=== PATIENT | male | born 1955 | race Caucasian/White ===

== ENCOUNTER 2024-03-06 05:53 | Observation (INO) ==
--- NOTE | 2024-02-22 08:25 | Anesthesiology Consultation ---
Date of Service February 22, 2024 Assessment & Plan (1) Encounter for pre-operative examination: Infectious disease screening: Per assessment on 02/22/24- No known recent infectious disease contacts or current infectious disease symptoms. Chart Review Chart Review: Acceptable Risk for Surgery and Patient NOT seen in Pre Admission Testing History Surgery Operation Date: 03/06/24 07:30 Proposed Procedures p TURP (Transurethral Resection Prostate) - Abdirahman Simon MD Height/Weight Height: 5 ft 11 in Weight: 89.811 kg Allergies Allergy/AdvReac Type Severity Reaction Status Date / Time Penicillins Allergy Mild Hives Verified 02/22/24 07:31 Medications Home Medications Medication Instructions Recorded Confirmed Last Taken amlodipine 10 mg tablet 10 mg PO QAM 08/30/23 02/22/24 Unknown atorvastatin 20 mg tablet 20 mg PO QPM 08/30/23 02/22/24 Unknown Past Medical History Medical History Benign prostatic hyperplasia (BPH) with urinary urgency History of pericarditis (1987) Viral, treated during admission at that time No current/subsequent issues HLD (hyperlipidemia) Hypertension Past Surgical History Surgical History Hx of appendectomy Hx of colonoscopy Social History Smoking Status: Never smoker Do You Dip or Chew Tobacco: No Hx Alcohol Use: No Hx Substance Use: No substance use type: does not use Lab Results Anesthesia Preop Results Results Anesthesia Widget: WBC 5.88 K/ul (4.8-10.8) 02/17/24 Hgb 16.9 g/dl (14.0-18.0) 02/17/24 Hct 49.7 % (42.0-52.0) 02/17/24 Plt 217 K/uL (130-400) 02/17/24 Na 140 mmol/L (136-145) 02/17/24 K 3.8 mmol/L (3.5-5.1) 02/17/24 Cl 106 mmol/L (98-107) 02/17/24 CO2 28 mmol/L (21-32) 02/17/24 BUN 13 mg/dl (6-23) 02/17/24 Creat 0.86 mg/dl (0.6-1.4) 02/17/24 Glucose Level 113 mg/dl (70-99(Fasting)) H 02/17/24 Testing Laboratory Results UA (01/31/24): negative Urine culture (02/17/24): no growth Electrocardiogram Date: 02/17/24 NSR at 67bpm. Septal infarct, age undetermined. Septal infarct dating back to comparison EKG 10/08/258691. Stress echo done 10/22/2013 with stress echo negative for inducible ischemia. Chest X-Ray Date: 02/17/24 FINDINGS: No lines and tubes are seen. The cardiomediastinal silhouette is normal. The lungs are clear. No evidence of pleural effusion or pneumothorax. IMPRESSION: No acute chest disease.
[2024-03-06] MEDS: LR 15ML/HR IV SCH (06:26)
[2024-03-06] MEDS ORDERED: HYDROmorphone INJ 2 MG/ML SYR/VIAL IV PRN (06:58)
[2024-03-06] MEDS ORDERED: PROMETHAZINE HCL 6.25 MG in SODIUM CHLORIDE 0.9% 50 ML IV PRN (06:58)
[2024-03-06] MEDS ORDERED: ePHEDrine sulfate 50 MG/ML AMP IV PRN (06:58)
[2024-03-06] MEDS ORDERED: ATROPINE SULFATE 0.1 MG/ML 10ML SYR IV PRN (06:58)
[2024-03-06] MEDS ORDERED: ONDANSETRON INJ 2 MG/ML 2 ML VIAL IV PRN (06:58)
[2024-03-06] MEDS ORDERED: MIDAZOLAM HCL 1 MG/ML 2ML VIAL ONE (07:07)
[2024-03-06] MEDS ORDERED: fentaNYL citrate PF 100 MCG/2 ML VIAL ONE (07:07)
[2024-03-06] MEDS ORDERED: PROPOFOL IV EMULSION 10 MG/ML 20 ML VIAL IV ONE (07:08)
[2024-03-06] MEDS ORDERED: DEXAMETHASONE SOD INJ 4 MG/ML VIAL ONE (07:08)
[2024-03-06] MEDS ORDERED: ONDANSETRON INJ 2 MG/ML 2 ML VIAL ONE (07:08)
[2024-03-06] MEDS ORDERED: LIDOCAINE 2% 2 ML VIAL/AMP(20MG/ML) INFIL ONE (07:08)
--- NOTE | 2024-03-06 07:22 | History & Physical Report ---
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 here now for TURP Allergies Allergy/AdvReac Type Severity Reaction Status Date / Time Penicillins Allergy Mild Hives Verified 03/06/24 06:11 Home Medications Medication Instructions Recorded Confirmed Type amlodipine 10 mg tablet 10 mg PO QAM 08/30/23 03/06/24 History atorvastatin 20 mg tablet 20 mg PO QPM 08/30/23 03/06/24 History Past Med/Surg History Problem List Encounter for pre-operative examination Dysuria Benign prostatic hyperplasia (BPH) with urinary urgency Medical History Benign prostatic hyperplasia (BPH) with urinary urgency History of pericarditis (1987) Viral, treated during admission at that time No current/subsequent issues HLD (hyperlipidemia) Hypertension Surgical History Hx of appendectomy Hx of colonoscopy Social History Smoking Status: Never smoker Second Hand Exposure: No; Do You Dip or Chew Tobacco: No; Tobacco Cessation Education Requested by Patient: No Hx Alcohol Use: No Hx Substance Use: No Preferred Language: Ukrainian Communication Ability: Effective Director Of Retention Required: No Beliefs That Will Affect Care: None Current Living Situation: Spouse Other Information That Helps Us Care for You: No Feels Safe at Home: Yes Safety Concerns: Feels Safe At This Time Assistive Devices: Hearing Aid - Bilateral Physical Exam Constitutional: well developed and well nourished Neck: neck nontender Respiratory: normal respiratory effort; no respiratory distress and does not use accessory muscles Cardiovascular: Rate/Rhythm: regular rate Vessels: radial pulses present Extremities: no edema Gastrointestinal (Abdomen): Inspection/Auscultation: abdomen normal to inspection Percussion/Palpation: abdomen soft; abdomen nontender and no guarding Musculoskeletal: Head/Neck/Chest: normocephalic and head atraumatic Extremities: extremities normal to inspection Skin: no rashes and no lesions Trauma: no evidence of skin trauma Neurologic: awake; not obtunded Speech / Cognition: normal speech Motor /Sensory: no tremor Psychiatric: Orientation: alert and oriented x 3 Genitourinary: no CVA tenderness Lymphatic: no lymphadenopathy Results & Data Vital Signs (Past 12 Hours) Vital Signs Temp Pulse Resp BP Pulse Ox O2 Del Method 03/06/24 06:16 37 C 70 20 166/96 H 99 Room Air
[2024-03-06] MEDS: CIPROFLOXACIN / D5W 400 MG/200 ML BAG IV SCH ×2 (07:31→18:14)
--- NOTE | 2024-03-06 08:24 | Operative Report ---
PG Post Operative Report Pre & Post Diagnosis Operation Date: 03/06/24 08:10 Pre-Op Diagnosis: Benign Prostatic Hyperplasia with Lower Urinary Tract symptoms Post-Op Diagnosis: Benign Prostatic Hyperplasia with Lower Urinary Tract symptoms I identified the patient and participated in the time-out.: Yes Procedure Operation Date: 03/06/24 08:10 Actual Procedures p TURP (Transurethral Resection Prostate)(Not Applicable) - Abdirahman Simon MD Surgeon Abdirahman Simon MD [employer]ified [employer] Associate none Estimated Blood Loss 0 Findings Consistent with Post-Op Diagnosis Specimens Prostate chips Description of Procedure The patient was identified in the preoperative holding area, appropriate informed consents were reviewed and completed and the patient was transferred to the operative suite. Upon arrival, appropriate antibiotics and anesthesia were administered and the patient was placed in dorsal lithotomy position and prepped and draped in sterile fashion. To begin the case I dilated his meatus to accommodate a 27 [place] resectoscope. I used cystoscopy sounds to perform the dilation and it was atraumatic. I then advanced the scope without difficulty. 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 The prostate itself was enlarged but he has a pedunculated intravesical median lobe. The remainder of his bladder was quite healthy and his ureteral orifices were in orthotopic position. I used a loop electrode and I first resected the median lobe. This drastically improved the appearance of the prostate. He does have some residual lateral lobe obstruction but it is not excessive. I contoured the lateral lobes and a bit of redundant anterior tissue to completely open the prostatic urethra. The specimen was extracted and hemostasis obtained. A 22 [place] Antoine catheter was inserted without difficulty and the case was concluded. He tolerated anesthesia very well and was reversed and taken to the recovery room in stable condition. He will be kept overnight and have a voiding trial tomorrow morning and then follow-up in our office in approximately 3 months to assess his symptoms. I attest to the content of the Intraoperative Record and any orders documented therein. Any exceptions are noted below.
[2024-03-06] MEDS: fentaNYL citrate PF 100 MCG/2 ML VIAL IV PRN (08:29)
--- NOTE | 2024-03-06 08:49 | Anesthesiology Progress Note ---
Date of Service March 06, 2024 Anesthesia Post Procedure Vital Signs Vital Signs: Temp Pulse Pulse Resp BP Pulse Ox O2 Del Method 03/06/24 08:40 63 16 140/78 95 Oxymask 03/06/24 08:30 63 17 131/79 97 Oxymask 03/06/24 08:22 36.4 C L 81 17 143/78 H 97 Oxymask 03/06/24 06:16 37 C 70 20 166/96 H 99 Room Air O2 Flow Rate 03/06/24 08:40 5 03/06/24 08:30 5 03/06/24 08:22 5 03/06/24 06:16 Transfer of Care Handoff Completed per policy Notes Mental Status: alert / awake / arousable and participated in evaluation Patient Amnestic to Procedure: Yes Nausea / Vomiting: adequately controlled Pain: adequately controlled Airway Patency, RR, SpO2: stable & adequate BP & HR: stable & adequate Hydration State: stable & adequate Anesthetic Complications: no major complications apparent
[2024-03-06] MEDS: SODIUM CHLORIDE 0.9% 500 ML IV SCH (09:40)
[2024-03-06] MEDS: ACETAMINOPHEN 325 MG TAB PO PRN (09:48)
[2024-03-06] MEDS: amLODIPine BESYLATE 5 MG TAB PO SCH (09:49)
[2024-03-06] MEDS: PHENAZOPYRIDINE HCL 200 MG TAB PO PRN (11:14)
[2024-03-06] MEDS: ATORVASTATIN 20 MG TAB PO SCH (20:19)
--- NOTE | 2024-03-07 09:27 | Urology Progress Note ---
Date of Service March 07, 2024 Assessment & Plan (1) Benign prostatic hyperplasia (BPH) with urinary urgency: Plan Postop day #1 status post TURP Plan for voiding trial this morning and discharge home later today Admission and Anticipated Discharge Date Admission Date: March 06, 2024 Subjective No major issues overnight Catheters been draining well No pain or discomfort Clear urine Physical Exam Physical Exam: Clear urine in the tubing Results & Data Vital Signs (Past 12 Hours) Vital Signs Temp Pulse Pulse Resp BP Pulse Ox O2 Del Method 03/07/24 08:09 36.6 C 78 17 179/83 H 95 Room Air 03/07/24 03:04 36.5 C 64 18 136/67 96 Room Air 03/06/24 23:33 36.5 C 63 18 150/77 H 96 Room Air PG Care Time/CCT Total # of Minutes Spent Total Time Spent with Patient: Total time spent is greater than 50% in coordination of care (as documented) at patient's floor/unit and/or counseling patient: Coding Level of Care Code None Diagnoses Benign prostatic hyperplasia (BPH) with urinary urgency N40.1; R39.15
[2024-03-07 14:14] VITALS: RESP 18
[2024-03-07 15:11] VITALS: BP 173/96; PULSE 74; TEMP 98.2; O2SAT 96
--- NOTE | 2024-03-07 15:47 | Discharge Summary ---
Date of Service March 07, 2024 Admission HPI Per Admitting Provider 68 year old male with long standing voiding dysfunction with an enlarged prostate here now for TURP Admission Exam Per Admitting Provider Constitutional: well developed and well nourished Neck: neck nontender Respiratory: normal respiratory effort; no respiratory distress and does not use accessory muscles Cardiovascular: Rate/Rhythm: regular rate Vessels: radial pulses present Extremities: no edema Gastrointestinal (Abdomen): Inspection/Auscultation: abdomen normal to inspection Percussion/Palpation: abdomen soft; abdomen nontender and no guarding Musculoskeletal: Head/Neck/Chest: normocephalic and head atraumatic Extremities: extremities normal to inspection Skin: no rashes and no lesions Trauma: no evidence of skin trauma Neurologic: awake; not obtunded Speech / Cognition: normal speech Motor/Sensory: no tremor Psychiatric: Orientation: alert and oriented x 3 Genitourinary: no CVA tenderness Lymphatic: no lymphadenopathy Principal Diagnosis BPH w/LUTS Discharge Exam Constitutional no acute distress Respiratory no respiratory distress and no labored breathing Musculoskeletal Head/Neck/Chest: normocephalic Skin no rashes, warm and dry Neurologic moves all extremities and awake Psychiatric A+Ox3, euthymic affect Discharge Data Allergies Allergy/AdvReac Type Severity Reaction Status Date / Time Penicillins Allergy Mild Hives Verified 03/06/24 06:11 Procedures Performed Operation Date: 03/06/24 08:10 Actual Procedures p TURP (Transurethral Resection Prostate)(Not Applicable) - Abdirahman Simon MD Hospital Course (1) Benign prostatic hyperplasia (BPH) with urinary urgency: Plan 68-year-old male admitted status post transurethral resection of the prostate with Dr. Simon. Patient tolerated procedure well. No acute issues postoperatively. He remained afebrile and hemodynamically stable. Antoine catheter was removed on postop day #1 for a voiding trial which he passed. He reported minimal pain. Ambulated without issue. He was subsequently discharged home on postop day #1. He was in stable condition at time of discharge. Discharge instructions were reviewed and all questions were answered. Total Time Total Time Spent Total Time Spent (In Minutes): 15 Discharge Plan Discharge Items Patient Disposition: Home - Self-Care Reason For Visit: Benign Prostatic Hyperplasia with Lower Urinary Tr Discharge Diagnosis: BPH with LUTS Condition on Discharge: Good Activity: Per Instructions section Non-emergency contact: Surgeon and Urologist Call non-emergency contact if: you have any medication questions, your symptoms worsen, your pain is not controlled and you have a fever Follow-up/Referrals: Abdirahman Simon MD [Physician] - Byron Payton DO [Primary Care Provider] - Diet: Regular Addtl Attending Provider Instructions: Please take all medications as prescribed and keep all follow-ups as scheduled. Please call our office at [phone] with any questions, concerns or need to reschedule appointments for any reason. We are happy to assist you. The urology office will contact you to arrange a follow-up visit. Tips for your recovery at home: Dont be alarmed by brownish or reddish blood or clots in your urine. This is a result of the procedure. This may occur off and on for weeks to months after the procedure but should continue to improve. Drink plenty of fluids during the day (enough to keep your urine very light colored). This will help keep a healthy flow of urine. Do not lift >25 lbs until your followup Avoid constipation. Please use a stool softener (Colace) for the first two weeks after your procedure Be sure to finish the antibiotics as prescribed. If you go home with a catheter, please wash tubing where it enters your body twice daily with mild soap (Dove or Dial). Once your catheter is removed, expect some blood in your urine and some burning when you urinate. You should have an appointment to have this removed, if you do not please call our office to arrange. When to call [facility] at [phone]: Your urine contains heavy blood clots or you are unable to urinate You are constantly leaking urine Fever of 101F or higher, chills, nausea, or vomiting Your pain is not relieved with medication Pending Studies at Discharge: Yes (Pathology) Stand-Alone Forms: [employer], Smoking Cessation Medications and DC Order Prescriptions: New ciprofloxacin HCl 500 mg tablet 500 mg PO BID 3 Days Qty: 6 0RF phenazopyridine [Pyridium] 100 mg tablet 100 mg PO BID PRN (Reason: bladder pain) Qty: 6 0RF Continued atorvastatin 20 mg tablet 20 mg PO QPM amlodipine 10 mg tablet 10 mg PO QAM Discharge Orders: Discharge Order (Routine); Ordered 03/07/24 Ordered By: Shavonne Gramajo Admission Data Admit Date/Time: 03/06/24 08:17 Attending Provider: Abdirahman Simon Admit Provider: Abdirahman Simon Primary Care Provider: Byron Payton Coding Level of Care Code 81372 IN/OBS DISCH 30 MIN/LESS Diagnoses Benign prostatic hyperplasia (BPH) with urinary urgency N40.1; R39.15
== END 2024-03-07 16:25 | disposition home or self-care (01) ==
LOC: ASU 05:53 → 3E 05:53
DX: Z88.0 Allergy status to penicillin; I10 Essential (primary) hypertension; Z79.899 Other long term (current) drug therapy; N40.1 Benign prostatic hyperplasia with lower urinary tract symptoms